=== PATIENT | female | born 1955 | race Hispanic/Latino ===

== ENCOUNTER → 2017-05-24 | Outpatient (CLI) | payer OTHER ==
[~2017-05-24] MED LIST: ACCOLATE20 MG PO; AMLODIPINE BESIL1 GM PO; AMLODIPINE BESYL5 MG PO; ATORVASTATIN CA20 MG PO; CARAFATE1 GM PO; FLAGYL500 MG PO; HYDROCHLOROTHIA25 MG PO; HYDROXYZINE HCL25 MG PO; LEVETIRACETAM500 MG PO; LORATADINE10 MG PO; MECLIZINE HCL25 MG PO; OMEPRAZOLE40 MG PO; PAROXETINE HCL30 MG PO; PLAVIX75 MG PO; TOPAMAX100 MG PO; TOPIRAMATE25 MG PO; ULTRAM50 MG PO
== END ==
LOC: MAMMO 08:16
PROVIDERS: ATTEND Internal Medicine
DX: Z12.31 Encounter for screening mammogram for malignant neoplasm of breast (principal)
CPT/HCPCS: 77067

== ENCOUNTER → 2017-06-17 | Outpatient (CLI) | payer OTHER ==
--- NOTE | 2017-06-19 11:37 | Diagnostic Imaging Report ---
History: Forgetfulness, severe headaches Comparison studies: None Technique: Sagittal T2; axial DWI, FLAIR, MPGR, T1, Coronal FLAIR. Intravenous contrast: None Findings: Scalp: Normal in signal . No masses . Bone marrow: Normal in signal intensity. Extra-axial: No masses, no fluid collections. Brain sulci: Appropriate for age. Ventricles: Normal in size . No hydrocephalus . Parenchyma: Scattered T2/flair hyperintensities of the periventricular and deep white matter No masses, hemorrhage, acute or chronic vascular insults. Suprasellar region: No abnormalities. Craniocervical junction: No abnormalities. Patent foramen magnum. No Chiari one malformation. Vessels: Normal flow-voids in the arteries and sinuses. IMPRESSION: 1. No acute intracranial abnormalities. 2. Mild to moderate chronic microvascular ischemic changes of the white matter. Age-appropriate volume loss. Signed by: DR Chuckie Kenny M.D. on 06/19/2017 11:33 AM
== END ==
LOC: MRI 09:31
PROVIDERS: ATTEND Specialist
DX: R51 Headache (principal); R41.3 Other amnesia
CPT/HCPCS: 70551

== ENCOUNTER 2017-07-31 10:02 | Inpatient (IN) | payer OTHER ==
[~2017-07-31] VITALS: Ht 149.9 cm; Wt 79.4 kg
--- OUTSIDE RECORDS SUMMARY | 2017-07-31 10:05 | XMS REPORT ---
Author Author [facility] Address Unknown Phone Unavailable Care Team Providers Care Clinical Informatics Spec Name Role Phone DC LOW Unavailable Unavailable QUINTANILLA ARIELA Unavailable Unavailable Problems This patient has no known problems. Allergies, Adverse Reactions, Alerts This patient has no known allergies or adverse reactions. Medications This patient has no known medications. Results Test Description Test Time Test Comments Text Results Atomic Results Result Comments MRI BRAIN WO [place] [address] Patient Name: MARIUSZ CABRERA MR #: [id number] : 1955 Age/Sex: 62/F Req #: [id number] Adm Physician: Ordered by: DC LOW MD Report #: [id number] Location: MRI Room/Bed: Procedure: [id number] MRI/MRI BRAIN WO Exam Date: Exam Time: REPORT STATUS: Signed History: Forgetfulness, severe headaches Comparison studies: None Technique: Sagittal T2; axial DWI, FLAIR, MPGR, T1, Coronal FLAIR. Intravenous contrast: None Findings: Scalp: Normal in signal . No masses . Bone marrow: Normal in signal intensity. Extra-axial: No masses, no fluid collections. Brain sulci: Appropriate for age. Ventricles: Normal in size . No hydrocephalus . Parenchyma: Scattered T2/flair hyperintensities of the periventricular and deep white matter No masses, hemorrhage, acute or chronic vascular insults. Suprasellar region: No abnormalities. Craniocervical junction: No abnormalities. Patent foramen magnum. No Chiari one malformation. Vessels: Normal flow-voids in the arteries and sinuses. IMPRESSION: 1. No acute intracranial abnormalities. 2. Mild to moderate chronic microvascular ischemic changes of the white matter. Age-appropriate volume loss. Signed by: DR Chuckie Kenny M.D. on 06/19/2017 11:33 AM Dictated By: CHUCKIE ZEPEDA MD 113 Transcribed By: BRYCE on 06/19/17 113 COPY TO: DC LOW MD MAMMOGRAPHY DIGITAL SCR BILAT [place] [address] Patient Name: MARIUSZ CABRERA MR #: [id number] : 1955 Age/Sex: 62/F Req #: [id number] [facility] Physician: Ordered by: ARIELA QUINTANILLA MD Report #: [id number] Location: MAMMO Room/Bed: Procedure: [id number] MG/MAMMOGRAPHY DIGITAL SCR BILAT Exam Date: 05/24/17 Exam Time: 0833 REPORT STATUS: Signed # [id number] - [id number] #BILATERAL DIGITAL SCREENING MAMMOGRAM WITH CAD: 05/24 CLINICAL: Routine screening. Comparison is made to exams dated: 12/21/2014 mammogram and 12/29/2013 mammogram - [facility]. Current study contains 6 films. The tissue of both breasts is heterogeneously dense. This may lower the sensitivity of mammography. Current study was also evaluated with a Computer Aided Detection (CAD) system. There are benign calcifications in both breasts. No significant masses, calcifications, or other findings are seen in either breast. There has been no significant interval change. IMPRESSION: BENIGN There is no mammographic evidence of malignancy. A 1 year screening mammogram is recommended. The patient will be notified by letter of the results. Portia peters/josh:06/12/2017 10:41:15 [facility] Consultant: Mitzi DILL(R)(Eulalio), [facility] letter sent: Compared to Prior B9 Mammogram BI-RADS: 2 Benign Dictated By: PORTIA TRINH DO 1041 COPY TO: ARIELA QUINTANILLA MD
[2017-07-31] MEDS ORDERED: PROAIR HFA INH8.5 GM (10:35)
[2017-07-31] MEDS ORDERED: METOPROLOL SUCC25 MG (10:35)
[2017-07-31] MEDS ORDERED: ATORVASTATIN CA80 MG (10:35)
[2017-07-31] MEDS ORDERED: AMLODIPINE BESY10 MG (10:35)
[2017-07-31] MEDS ORDERED: FUROSEMIDE20 MG (10:35)
[2017-07-31] MEDS ORDERED: TOPIRAMATE200 MG (10:35)
[2017-07-31] MEDS ORDERED: METFORMIN HCL500 MG (10:35)
[2017-07-31] MEDS ORDERED: KETOROLAC TROMETHAMINE 30 MG/ML VIAL IV STA (10:42)
[2017-07-31] MEDS ORDERED: PROMETHAZINE 25MG/ NS 50ML (IV) IV ONE (10:45)
[2017-07-31 11:15] LABS: BASOPHILS % 0.5 % (0.0-1.0); EOSINOPHILS # (AUTO) 0.1 (0.0-0.4); EOSINOPHILS % 1.6 % (0.0-6.0); HEMATOCRIT 34.6 % (34.2-44.1); HEMOGLOBIN 11.3 g/dL (12.0-16.0); LYMPHOCYTES # (AUTO) 1.6 (1.0-3.2); LYMPHOCYTES % 21.2 % (18.0-39.1); MEAN CORPUSCULAR HEMOGLOBIN 29.5 pg (28-32); MEAN CORPUSCULAR HGB CONC 32.7 g/dL (31-35); MEAN CORPUSCULAR VOLUME 90.3 fL (81-99); MONOCYTES # (AUTO) 0.4 (0.2-0.8); MONOCYTES % 5.7 % (4.4-11.3); NEUTROPHILS # (AUTO) 5.1 (2.1-6.9); NEUTROPHILS % 70.3 % (38.7-80.0); PLATELET COUNT 218 x10e3/uL (140-360); RED BLOOD COUNT 3.83 x10e6/uL (3.6-5.1); RED CELL DISTRIBUTION WIDTH 14.6 % (11.7-14.4)
--- NOTE | 2017-07-31 11:15 | Diagnostic Imaging Report ---
PROCEDURE: CHEST SINGLE (PORTABLE) COMPARISON: Chest radiograph 08/17/2016. INDICATIONS: SYNCOPAL EPISODE, MIGRAINE FINDINGS: The lungs remain well-inflated without focal consolidation, pleural effusion, or pneumothorax. Stable enlargement of the cardiac silhouette without pulmonary edema. No acute osseous abnormality. CONCLUSION: Mild cardiomegaly without vascular decompensation. Dictated by: Homer Cortez M.D. on 07/31/2017 at 11:17 Electronically approved by: Homer Cortez M.D. on 07/31/2017 at 11:17
[2017-07-31 11:26] LABS: PROTHROMBIN TIME 12.4 seconds (11.9-14.5)
[2017-07-31] MEDS ORDERED: SODIUM CHLORIDE 0.9% 1000 ML BAG IV ONE (11:30)
[2017-07-31 11:33] LABS: BILIRUBIN,URINE NEGATIVE (NEGATIVE); CLARITY,URINE CLEAR (CLEAR); COLOR,URINE YELLOW (YELLOW); KETONES,URINE NEGATIVE (NEGATIVE); LEUKOCYTE ESTERASE ,URINE NEGATIVE (NEGATIVE); NITRITE,URINE NEGATIVE (NEGATIVE); PROTEIN,URINE DIPSTICK 1+ (NEGATIVE); URINE UROBILINOGEN 0.2 mg/dL (0.2 - 1)
[2017-07-31 11:38] LABS: ALBUMIN 3.9 g/dL (3.5-5.0); ALBUMIN/GLOBULIN RATIO 1.2 (0.8-2.0); ANION GAP 11.7 mmol/L (8-16); CALCIUM 9.7 mg/dL (8.4-10.2); CREATININE, SERUM 1.46 mg/dL (0.57-1.11); POTASSIUM 3.7 mmol/L (3.5-5.1)
--- NOTE | 2017-07-31 11:43 | Diagnostic Imaging Report ---
Exam: Head CT without contrast History: Syncope, migraine Comparison studies: Brain MRI 06/17/2017 Technique: Axial images were obtained from the skull base to the vertex. Coronal and sagittal images reconstructed from the axial data. Intravenous contrast: None Findings: Scalp: No abnormalities. Bones: No fractures, blastic or lytic lesions. Brain sulci: Mildly prominent. Ventricles: No hydrocephalus. Extra-axial spaces: No masses, no fluid collection. Parenchyma: No mass, acute hemorrhage or acute cortical vascular insults. Scattered hypodensities in the supratentorial white matter are nonspecific but most compatible with chronic small vessel ischemic changes. Sellar/suprasellar region: No abnormalities. Craniocervical junction: Patent foramen magnum. No Chiari one malformation. IMPRESSION: 1. No acute abnormalities. 2. Mild to moderate chronic small vessel ischemic changes. 3. No changes from the previous brain MRI of 06/17/2017 when allowing for differences in modality. Signed by: Dr. Homer Law M.D. on 07/31/2017 11:39 AM
[2017-07-31 11:44] LABS: EPITHELIAL CELLS,URINE RARE /LPF
[2017-07-31 11:45] LABS: TRANSITIONAL EPI CELLS,URINE RARE; WBC,URINE (MAN) 0-5 /HPF (0-5)
[2017-07-31] MEDS ORDERED: ONDANSETRON HCL INJ 2 MG/ML VIAL IV STA (11:52)
[2017-07-31] MEDS ORDERED: KETOROLAC TROMETHAMINE 30 MG/ML VIAL IV ONE (12:00)
[2017-07-31] MEDS ORDERED: KETOROLAC TROMETHAMINE 30 MG/ML VIAL IV SCH (12:15)
[2017-07-31] MEDS ORDERED: SODIUM CHLORIDE FLUSH 10 ML SYR INJ PRN (12:30)
[2017-07-31] MEDS ORDERED: ONDANSETRON HCL INJ 2 MG/ML VIAL IV PRN (12:30)
[2017-07-31] MEDS ORDERED: ONDANSETRON HCL 4 MG ORAL DISINTEGRATING TAB SL PRN (12:30)
[2017-07-31 12:45] LABS: CREATINE KINASE 67 IU/L (29-168)
[2017-07-31 15:50] VITALS: BP 137/66
[2017-07-31] MEDS ORDERED: ALBUTEROL SULFATE HFA 8GM INHALATION AEROSOL INH PRN (17:45)
--- NOTE | 2017-07-31 18:19 | History and Physical ---
This is a 62-year-old female patient admitted though the emergency room with the diagnosis of severe headache. The patient had onset of syncopal event. HISTORY OF PRESENT ILLNESS: Ms. Verona Braxton is a known patient with a previous migraine. She brought some medications from [place] for cough, and the patient was having severe headache, tightness and pressure in the frontal area, and photophobia and nausea and vomiting. The patient passed out from that. The patient also complaining of epigastric pain while eating. REVIEW OF SYSTEMS: Severe headache and epigastric and chest pain and chronic cough. PAST MEDICAL HISTORY: Hypertension, diabetes mellitus, , CVA, seizure disorder and . PAST SURGICAL HISTORY: . ALLERGIES: MORPHINE. SOCIAL HISTORY: Denies smoking. Denies using alcohol. FAMILY HISTORY: Diabetes mellitus and hypertension. PHYSICAL EXAMINATION GENERAL: She is a 62-year-old female patient lying in the bed not in any acute distress. VITAL SIGNS: Temperature 98, pulse 90, blood pressure 110/80, respirations 15. HEENT: Normocephalic atraumatic. NECK: No JVD, no lymphadenopathy. LUNGS: Bilateral equal air entry; no rales, no rhonchi. HEART: S1, S2, regular, no murmur, no gallop. ABDOMEN: Soft, bowel sounds present. No organomegaly. NEUROLOGIC: Nonfocal. No neurologic deficit. ADMITTING IMPRESSION 1. Syncope. 2. Severe migraine headache. 3. Diabetes mellitus. 4. Hypertension. 5. Gastroesophageal reflux disease. 6. Gastritis. PLAN: The patient will be admitted with the above diagnosis. The patient is treated with Toradol and Zofran. Neurology and cardiology evaluation will be done. Cardiac enzymes were negative. Will monitor the patient. The patient has renal insufficiency and will monitor the patient's kidney function. The patient had CT scan of the head done which was negative for any acute stroke, showing some chronic microvascular changes in small vessels, mild to moderate, consistent with a migraine. Will give the patient Protonix for the GERD symptoms. For syncope, telemetry monitoring will be done. Job#: [id number]
[2017-07-31 18:54] VITALS: BP 137/66
[2017-07-31 19:00] VITALS: BP 146/76
[2017-07-31] MEDS: KETOROLAC TROMETHAMINE 30 MG/ML VIAL IV PRN (19:01)
[2017-07-31 19:26] LABS: CREATINE KINASE 60 IU/L (29-168)
[2017-07-31] MEDS: LEVETIRACETAM 500 MG TAB PO SCH (20:36)
[2017-07-31] MEDS: TOPIRAMATE 25 MG TAB PO SCH (20:36)
[2017-07-31 21:00] VITALS: BP 146/76
[2017-07-31 23:00] VITALS: BP 140/85
[2017-08-01] VITALS (8 sets, daily range): BP systolic 138–164; BP diastolic 71–116
[2017-08-01] MEDS: KETOROLAC TROMETHAMINE 30 MG/ML VIAL IV PRN (03:28)
[2017-08-01 06:02] LABS: BASOPHILS % 0.5 % (0.0-1.0); EOSINOPHILS # (AUTO) 0.2 (0.0-0.4); HEMATOCRIT 31.4 % (34.2-44.1); HEMOGLOBIN 10.1 g/dL (12.0-16.0); LYMPHOCYTES # (AUTO) 2.5 (1.0-3.2); LYMPHOCYTES % 30.9 % (18.0-39.1); MEAN CORPUSCULAR HEMOGLOBIN 29.3 pg (28-32); MEAN CORPUSCULAR HGB CONC 32.2 g/dL (31-35); MONOCYTES # (AUTO) 0.6 (0.2-0.8); MONOCYTES % 7.4 % (4.4-11.3); NEUTROPHILS # (AUTO) 4.6 (2.1-6.9); NEUTROPHILS % 57.6 % (38.7-80.0); PLATELET COUNT 202 x10e3/uL (140-360); RED BLOOD COUNT 3.45 x10e6/uL (3.6-5.1); RED CELL DISTRIBUTION WIDTH 14.9 % (11.7-14.4)
[2017-08-01 06:39] LABS: CREATINE KINASE 46 IU/L (29-168)
[2017-08-01 07:20] LABS: ALBUMIN 3.7 g/dL (3.5-5.0); ALBUMIN/GLOBULIN RATIO 1.2 (0.8-2.0); ANION GAP 11.3 mmol/L (8-16); CALCIUM 10.1 mg/dL (8.4-10.2); CREATININE, SERUM 1.73 mg/dL (0.57-1.11); POTASSIUM 4.3 mmol/L (3.5-5.1)
[2017-08-01] MEDS: METFORMIN HCL 500 MG TAB PO SCH ×2 (08:38→16:23)
[2017-08-01] MEDS: LEVETIRACETAM 500 MG TAB PO SCH ×2 (08:55→21:08)
[2017-08-01] MEDS: METOPROLOL SUCCINATE 25 MG TAB XL PO SCH (08:55)
[2017-08-01] MEDS: HYDROXYZINE HCL 25 MG TAB PO SCH (08:55)
[2017-08-01] MEDS: LORATADINE 10 MG TAB PO SCH (08:55)
[2017-08-01] MEDS: HYDROCHLOROTHIAZIDE 25 MG TAB PO SCH (08:55)
[2017-08-01] MEDS: FUROSEMIDE 40 MG TAB PO SCH (08:55)
[2017-08-01] MEDS: AMLODIPINE BESYLATE 10 MG TAB PO SCH (08:55)
[2017-08-01] MEDS: TOPIRAMATE 25 MG TAB PO SCH ×2 (08:55→21:08)
[2017-08-01] MEDS: CLOPIDOGREL BISULFATE 75 MG TAB PO SCH (08:55)
[2017-08-01] MEDS: ATORVASTATIN 40 MG TAB PO SCH (08:55)
[2017-08-01] MEDS: PANTOPRAZOLE SOD 40 MG TABEC PO SCH (08:55)
[2017-08-01] MEDS ORDERED: FUROSEMIDE 20 MG TAB PO SCH (09:00)
[2017-08-01] MEDS ORDERED: ATORVASTATIN 20 MG TAB PO SCH (09:00)
[2017-08-01 10:17] LABS: AMYLASE 120 U/L (25-125); LIPASE 69 U/L (8-78)
[2017-08-01] MEDS: SUCRALFATE 1 GM TAB PO SCH ×3 (11:30→21:08)
[2017-08-01] MEDS: PAROXETINE HCL 20 MG TAB PO SCH (15:50)
--- NOTE | 2017-08-01 16:45 | Diagnostic Imaging Report ---
PROCEDURE:ABDOMINAL ULTRASOUND COMPARISON:[facility], US, US ABDOMEN COMPLETE, 04/14/2014, 16:40. INDICATIONS:ABDOMINAL PAIN TECHNIQUE: Connelly-scale and color sonographic images were obtained of the abdomen in transverse and sagittal planes. FINDINGS: Liver: 14.0 cm in length in right midclavicular line. Increased echogenicity. No masses. Main portal vein: 0.8 cm, hepatopetal flow Gallbladder: Small amount of sludge is noted in the gallbladder lumen. No stones. No wall thickening or pericholecystic fluid. Common Bile Duct: 0.3 cm. Sonographic Prabhakar's sign: Negative Right kidney: 9.7 cm. Increased renal cortical echogenicity. No hydronephrosis, stones, or solid lesions. 2.4 x 2.0 x 2.1 cm cystic, anechoic lesion in the inferior pole. Left kidney: 9.7 cm. Increased renal cortical echogenicity. No hydronephrosis, stones, or solid lesions. Spleen: 8.3 cm. No focal lesions. Pancreas: The visualized portions are unremarkable. Inferior vena cava: Patent Aorta: Within normal limits Ascites: None CONCLUSION: 1. Gallbladder sludge. No cholelithiasis or sonographic evidence of cholecystitis. 2. Increased echogenicity of the hepatic parenchyma, consistent with steatosis. 3. 2.4 cm right simple renal cysts. 4. Increased bilateral renal cortical echogenicity, suggesting medical renal disease. Romulo Walton M.D. Dictated by: Romulo Walton M.D. on 08/01/2017 at 16:47 Electronically approved by: Romulo Walton M.D. on 08/01/2017 at 16:47
[2017-08-02 00:01] VITALS: BP 132/76
[2017-08-02 03:38] VITALS: BP 150/85
[2017-08-02 07:00] VITALS: BP 137/85
[2017-08-02] MEDS: SUCRALFATE 1 GM TAB PO SCH ×4 (07:30→19:41)
[2017-08-02] MEDS: METFORMIN HCL 500 MG TAB PO SCH ×2 (08:00→17:00)
[2017-08-02] MEDS: HYDROXYZINE HCL 25 MG TAB PO SCH (08:21)
[2017-08-02] MEDS: LORATADINE 10 MG TAB PO SCH (08:26)
[2017-08-02] MEDS: CLOPIDOGREL BISULFATE 75 MG TAB PO SCH (08:27)
[2017-08-02] MEDS: ATORVASTATIN 40 MG TAB PO SCH (08:27)
[2017-08-02] MEDS: PANTOPRAZOLE SOD 40 MG TABEC PO SCH (08:27)
[2017-08-02] MEDS: METOPROLOL SUCCINATE 25 MG TAB XL PO SCH (08:28)
[2017-08-02] MEDS: TOPIRAMATE 25 MG TAB PO SCH ×2 (08:28→19:41)
[2017-08-02] MEDS: PAROXETINE HCL 20 MG TAB PO SCH (08:29)
[2017-08-02] MEDS: FUROSEMIDE 40 MG TAB PO SCH (08:30)
[2017-08-02] MEDS: HYDROCHLOROTHIAZIDE 25 MG TAB PO SCH (08:30)
[2017-08-02] MEDS: LEVETIRACETAM 500 MG TAB PO SCH ×2 (08:34→19:41)
[2017-08-02] MEDS: AMLODIPINE BESYLATE 10 MG TAB PO SCH (08:35)
[2017-08-02] MEDS ORDERED: NON-FORMULARY MEDICATION (Paroxetine Hcl 30 MG) PO SCH (09:00)
--- NOTE | 2017-08-02 09:32 | Consultation ---
DATE OF CONSULTATION: August 01, 2017 CARDIOLOGY CONSULTATION REASON FOR CONSULTATION: Syncope. HPI: This is a pleasant 62-year-old female that presented with severe headache. According to the patient, she had some medication from [place] for cough. Since she had been taking the cough medication, she had been having severe headache, chest tightness, nausea, vomiting, and some blurred vision. She also complained of epigastric pain while eating that she decided to come into the emergency room for evaluation. She has a history of migraine headache and CVA in the past. She described the chest pain as a tight pressure on a scale of 3/10 with no radiation accompanied with syncope and passing out. She denies any diaphoresis or shortness of breath. Troponin was negative. EKG showed normal sinus rhythm with no S/T abnormalities. She had an ultrasound of the abdomen that was showing gallbladder sludge. PAST MEDICAL HISTORY: Hypertension, diabetes, migraine headaches, CVA, seizures. PAST SURGICAL HISTORY: . ALLERGIES: MORPHINE. SOCIAL HISTORY: She lives at home with family. She denies any smoking or use of alcohol. REVIEW OF SYSTEMS: Negative except those mentioned above. Positive for severe headache, epigastric pain and syncope. PHYSICAL EXAMINATION VITAL SIGNS: Temperature 97, heart rate 55, blood pressure 135/85, respirations 19, oxygen saturation 99% on room air. GENERAL: She is awake, alert and oriented times 3. HEENT: Mucous membranes moist. NECK: Supple. LUNGS: Bilateral clear to auscultation. CARDIOVASCULAR: S1 and S2 present. ABDOMEN: Soft. NEUROLOGICAL: Intact. EXTREMITIES: With no edema. LABS: Sodium 146, potassium 4.3, chloride 116, CO2 23, BUN 25, creatinine 1.73. White blood cells 8, hemoglobin 10.1, hematocrit 31.4, and platelets 202,000. PT 12.4, PTT 26 and INR 1. IMPRESSION 1. Syncope. 2. Severe migraine headache. 3. Hypertension. 4. Diabetes. 5. History of cerebrovascular accident. 6. Epigastric pain. 7. Renal insufficiency. ASSESSMENT AND PLAN 1. Will go ahead and get an echocardiogram to assess the LV and the valve function. 2. Will check bilateral carotid Doppler to rule out any occlusion. 3. Will check orthostatic vital signs. 4. She is scheduled for EGD today. 5. Heart rate has been 50s, simone. Will go ahead and decrease her beta amol. Further cardiac workup pending clinical course. Thank you for this consultation. DICTATED BY ORALIA THOMPSON NP Job#: [id number] RI
[2017-08-02 12:00] VITALS: BP 150/78
[2017-08-02] MEDS ORDERED: LIDOCAINE HCL 2% LOCAL INJ 5 ML SDV VIAL INJ ONE (13:48)
[2017-08-02] MEDS ORDERED: PROPOFOL IV EMULSION 10 MG/ML 50 ML VIAL ONE (13:48)
--- NOTE | 2017-08-02 14:40 | Consultation ---
DATE OF CONSULTATION: July 31, 2017 TIME: 4 o'clock in the evening NEUROLOGIC CONSULTATION July 31, 2017 This 62-year-old female was admitted to the hospital with severe headache, syncopal spell, chronic cough and severe abdominal pain. The patient is well known to me from outpatient evaluation for headaches. She has been evaluated clinically including MRI of the brain which has been negative. At the present time, the main problems she has are abdominal pain and the cough. PAST MEDICAL HISTORY: She has history of hypertension, previous CVA, seizures and migraine headaches. SURGICAL HISTORY: . ALLERGIES: MORPHINE. PAST SOCIAL HISTORY: Lives with the family. No smoking, no drinking. MEDICATIONS: List of medications has been reviewed electronically. REVIEW OF SYSTEMS: All 12 systems negative except as described above. PHYSICAL EXAMINATION VITAL SIGNS: Blood pressure 130/60, pulse 54, afebrile. LUNGS: Clear to auscultation. HEART: Regular sinus rhythm. No murmur. ABDOMEN: Soft, nontender. No organomegaly. MUSCULOSKELETAL: Lower extremities no edema, no cyanosis, no clubbing. NEURO: Family members are present. She is alert, oriented times 3. Speech clear. No dysarthria, no dysphagia. Cranial nerves: Pupils are both equal and reactive. Extraocular movements were full. Visual porter were normal. No facial weakness. Tongue protruded midline. Motor: Upper and lower extremities show no evidence of gross weakness in either proximal or distal muscles. Plantar stimulation done bilateral. Deep tendon reflexes: Triceps, biceps and radials 1+. Knee absent and ankle absent bilateral. Coordination: Finger to nose normal. HEAD: Normocephalic. No tenderness. NECK: Supple. Normal range of motion without discomfort. Carotid pulsations were present bilaterally. There was no bruit. GAIT: Deferred. IMPRESSION 1. Long history of chronic headaches. 2. Chronic cough. 3. Acute abdominal pain. Laboratory work has been reviewed in detail. Everything seen to be in normal range. Will be discussing. For the severe pain and headache, we are going to do some Toradol 30 mg IV q.6 hours p.r.n. Will be discussing with attending physician for further options. Job#: [id number] VARUN
[2017-08-02] MEDS ORDERED: MIDAZOLAM HCL 2 MG/2 ML VIAL ONE (15:16)
[2017-08-02] MEDS ORDERED: PANTOPRAZOLE 40 MG 10ML VIAL IV SCH (15:30)
[2017-08-02 16:15] VITALS: BP 146/71
[2017-08-02] MEDS ORDERED: GUAIFENESIN 600MG/DEXTROMETHORPHAN 30MG TABSR PO SCH (17:00)
--- NOTE | 2017-08-02 17:11 | Operative Report ---
DATE OF PROCEDURE: August 02, 2017 REFERRING PHYSICIAN: Dr. Vladimir Quintanilla. PROCEDURE PERFORMED: Esophagogastroduodenoscopy with esophageal dilatation and biopsies. INDICATIONS FOR PROCEDURE: Upper abdominal pain. Nausea and vomiting, dysphagia to solids. MEDICATION: Patient was done under MAC. Please see anesthesiologist's note. PROCEDURE: With patient in the left lateral decubitus position, flexible fiberoptic Olympus gastroscope was introduced into the esophagus under direct visualization without any difficulty. There was some patchy erythema noted in distal esophagus. A mild stricture was noted at the GE junction that was dilated to a size 52-[place]etts. The scope was then advanced with ease into the stomach and approximately a 5 mm ulcer without active bleeding was noted in the upper body along the greater curvature and that was biopsied. Mucosa overlying the antrum revealed some diffuse erythema and moderate edema and biopsies were obtained and sent to stain for H. pylori. Pylorus appeared to be of normal contour and shape. Was intubated with ease, and the scope was advanced all the way to the 2nd portion of the duodenum. The scope was then withdrawn slowly. Mucosa overlying the proximal 2nd portion and the duodenal bulb appeared to be within normal limits. The scope was then withdrawn back into the stomach and retroflexed and the mucosa overlying the fundus and the cardia appeared to be within normal limits. The scope was then straightened out. It was subsequently withdrawn. Patient tolerated the procedure well. IMPRESSION: 1. Distal esophagitis, mild. 2. Esophageal stricture at gastroesophageal junction dilated to size 52-[place] Ricketts. 3. Gastritis biopsied. Biopsies sent to stain for H. pylori. 4. Approximately 5 mm ulcer upper body greater curvature, biopsied. PLAN: Follow up histology. Will increase Protonix to 40 mg IV b.i.d.. Job#: [id number] cc:ARIELA QUINTANILLA MD
[2017-08-02 19:55] VITALS: BP 144/72
--- NOTE | 2017-08-02 23:59 | Discharge Summary ---
She is a 62-year-old female patient presented to the emergency room with the severe headache and patient had a passed-out syncopal event. ADMITTING IMPRESSIONS AND DIAGNOSES 1. Syncope. 2. Severe migraine headache. 3. Diabetes mellitus. 4. Hypertension. 5. Gastritis. 6. Gastroesophageal reflux disease. 7. Possible esophageal stricture. 8. Depression. 9. Diabetes mellitus, type 2. 10. Hypertension. HOSPITAL COURSE SUMMARY: Patient was admitted with above diagnoses. Patient was given IV fluids, IV analgesics. Neurology and GI and cardiology consults were done. Patient was planned for the EGD and possible esophageal dilatation today. Patient did get echo and carotid Doppler by cardiology, Dr. Leung. The patient's neurologist evaluation, patient has a more underlying depression that is this problem. So, patient will be referred to outpatient psychiatrist and on carotid Doppler, patient did not have any significant blockage, and so, after EGD and possible dilatation , patient will be discharged home and advised to do the followup with the neurology and was referred to the psychiatrist. ARIELA QUINTANILLA MD Job#: [id number]
== END 2017-08-02 20:01 | disposition home or self-care (01) | DRG 103 ==
LOC: ER 10:14 → ERHOLD 12:51 → IMCU 14:34
PROVIDERS: ADMIT Internal Medicine; ATTEND Internal Medicine
PROC: 0D748ZZ Dilation of Esophagogastric Junction, Via Natural or Artificial Opening Endoscopic (ICD-10-PCS; 2017-08-02)
PROC: 0DB68ZX Excision of Stomach, Via Natural or Artificial Opening Endoscopic, Diagnostic (ICD-10-PCS; principal; 2017-08-02 14:30)
PROC: 0DB78ZX Excision of Stomach, Pylorus, Via Natural or Artificial Opening Endoscopic, Diagnostic (ICD-10-PCS; 2017-08-02 14:30)
DX: G43.909 Migraine, unspecified, not intractable, without status migrainosus (principal); E11.9 Type 2 diabetes mellitus without complications; K21.9 Gastro-esophageal reflux disease without esophagitis; F32.9 Major depressive disorder, single episode, unspecified; K22.2 Esophageal obstruction; K29.70 Gastritis, unspecified, without bleeding; K25.9 Gastric ulcer, unspecified as acute or chronic, without hemorrhage or perforation; Z86.73 Personal history of transient ischemic attack (TIA), and cerebral infarction without residual deficits; I10 Essential (primary) hypertension; Z79.4 Long term (current) use of insulin; R00.1 Bradycardia, unspecified
CPT/HCPCS: 36415; 43239; 43450; 70450; 71045; 76700; 80053; 81001; 82150; 82550; 82553; 83605; 83690; 84484; 85025; 85610; 85730; 87040; 88305; 88312; 93005; 93880; 99285; J1885; J2001; J2250; J3410; J7030

== ENCOUNTER → 2017-10-28 | Day surgery (SDC) | payer OTHER ==
[2017-10-22 13:36] LABS: BASOPHILS # (AUTO) 0.1 (0.0-0.1); BASOPHILS % 0.9 % (0.0-1.0); EOSINOPHILS # (AUTO) 0.3 (0.0-0.4); EOSINOPHILS % 3.3 % (0.0-6.0); HEMATOCRIT 33.2 % (34.2-44.1); HEMOGLOBIN 10.6 g/dL (12.0-16.0); LYMPHOCYTES # (AUTO) 2.6 (1.0-3.2); LYMPHOCYTES % 31.6 % (18.0-39.1); MEAN CORPUSCULAR HEMOGLOBIN 29.5 pg (28-32); MEAN CORPUSCULAR HGB CONC 31.9 g/dL (31-35); MEAN CORPUSCULAR VOLUME 92.5 fL (81-99); MONOCYTES # (AUTO) 0.6 (0.2-0.8); MONOCYTES % 7.5 % (4.4-11.3); NEUTROPHILS # (AUTO) 4.6 (2.1-6.9); NEUTROPHILS % 56.2 % (38.7-80.0); PLATELET COUNT 213 x10e3/uL (140-360); RED BLOOD COUNT 3.59 x10e6/uL (3.6-5.1); RED CELL DISTRIBUTION WIDTH 13.6 % (11.7-14.4)
[~2017-10-28] MED LIST changes: +AMLODIPINE BESY10 MG PO; +ATORVASTATIN CA80 MG PO; +FUROSEMIDE20 MG PO; +METFORMIN HCL500 MG PO; +METOPROLOL SUCC25 MG PO; +PANTOPRAZOLE SO40 MG PO; +PROAIR HFA INH8.5 GM; +PROPOFOL IV EMULSION 10 MG/ML 20 ML VIAL ONE; +SUCRALFATE1 GM PO; +TOPIRAMATE200 MG
[2017-10-28 14:30] VITALS: BP 139/76
== END | disposition home or self-care (01) ==
LOC: OR 10:27
PROVIDERS: ATTEND Internal Medicine Gastroenterology
DX: R10.13 Epigastric pain (principal); D64.9 Anemia, unspecified; R11.2 Nausea with vomiting, unspecified; E11.9 Type 2 diabetes mellitus without complications; I10 Essential (primary) hypertension; K21.9 Gastro-esophageal reflux disease without esophagitis; I25.10 Atherosclerotic heart disease of native coronary artery without angina pectoris; J45.909 Unspecified asthma, uncomplicated; Z01.810 Encounter for preprocedural cardiovascular examination; Z01.812 Encounter for preprocedural laboratory examination; Z80.3 Family history of malignant neoplasm of breast; Z83.79 Family history of other diseases of the digestive system
CPT/HCPCS: 36415; 45378; 82948; 85025; 93005

== ENCOUNTER → 2017-11-25 | Day surgery (SDC) | payer OTHER ==
[2017-11-19 14:53] LABS: BASOPHILS # (AUTO) 0.1 (0.0-0.1); EOSINOPHILS # (AUTO) 0.3 (0.0-0.4); EOSINOPHILS % 3.4 % (0.0-6.0); HEMATOCRIT 34.2 % (34.2-44.1); HEMOGLOBIN 10.7 g/dL (12.0-16.0); LYMPHOCYTES # (AUTO) 2.6 (1.0-3.2); LYMPHOCYTES % 31.2 % (18.0-39.1); MEAN CORPUSCULAR HEMOGLOBIN 29.1 pg (28-32); MEAN CORPUSCULAR HGB CONC 31.3 g/dL (31-35); MEAN CORPUSCULAR VOLUME 92.9 fL (81-99); MONOCYTES # (AUTO) 0.5 (0.2-0.8); MONOCYTES % 5.5 % (4.4-11.3); NEUTROPHILS # (AUTO) 4.8 (2.1-6.9); NEUTROPHILS % 58.4 % (38.7-80.0); PLATELET COUNT 229 x10e3/uL (140-360); RED BLOOD COUNT 3.68 x10e6/uL (3.6-5.1); RED CELL DISTRIBUTION WIDTH 13.7 % (11.7-14.4)
[~2017-11-25] MED LIST changes: +LIDOCAINE HCL 2% LOCAL INJ 5 ML SDV VIAL INJ ONE; +MIDAZOLAM HCL 2 MG/2 ML VIAL ONE
[2017-11-25 13:56] VITALS: BP 157/88
== END | disposition home or self-care (01) ==
LOC: OR 11:47
PROVIDERS: ATTEND Internal Medicine Gastroenterology
DX: K29.70 Gastritis, unspecified, without bleeding (principal); D64.9 Anemia, unspecified; R10.13 Epigastric pain; R14.0 Abdominal distension (gaseous); E11.9 Type 2 diabetes mellitus without complications; Z71.3 Dietary counseling and surveillance; I10 Essential (primary) hypertension; E66.01 Morbid (severe) obesity due to excess calories; Z68.41 Body mass index [BMI] 40.0-44.9, adult; R11.2 Nausea with vomiting, unspecified; Z88.5 Allergy status to narcotic agent; G40.909 Epilepsy, unspecified, not intractable, without status epilepticus; J45.909 Unspecified asthma, uncomplicated; K21.0 Gastro-esophageal reflux disease with esophagitis
CPT/HCPCS: 36415; 43239; 85025; 93005; J2001; J2250

== ENCOUNTER → 2019-07-22 | Outpatient (CLI) | payer OTHER ==
[~2019-07-22] MED LIST changes: +FERROUS SULFAT325 MG PO; +FOLIC ACID PO; +GABAPENTIN300 MG PO; +HYDRALAZINE HCL25 MG PO; +LEVOCETIRIZINE D5 MG PO; -LIDOCAINE HCL 2% LOCAL INJ 5 ML SDV VIAL INJ ONE; -MIDAZOLAM HCL 2 MG/2 ML VIAL ONE; +MONTELUKAST SOD10 MG PO; +OXYBUTYNIN CHLOR5 M1 PO; -PROPOFOL IV EMULSION 10 MG/ML 20 ML VIAL ONE
== END ==
LOC: MAMMO 12:11
PROVIDERS: ATTEND Internal Medicine
DX: Z12.31 Encounter for screening mammogram for malignant neoplasm of breast (principal)
CPT/HCPCS: 77067

== ENCOUNTER 2021-11-20 15:03 | Observation (INO) | payer OTHER ==
[~2021-11-20] VITALS: Ht 152.4 cm; Wt 84.8 kg
[2021-11-20] MEDS ORDERED: ASPIRIN 325 MG TAB PO ONE (15:15)
[2021-11-20] MEDS ORDERED: ONDANSETRON HCL INJ 2MG/ML 2ML 2 MG/ML VIAL IV PRN ×2 (15:15→17:45)
[2021-11-20 15:44] LABS: BASOPHILS # (AUTO) 0.1 (0.0-0.1); EOSINOPHILS # (AUTO) 0.4 (0.0-0.4); EOSINOPHILS % 5.6 % (0.0-6.0); HEMATOCRIT 30.8 % (34.2-44.1); HEMOGLOBIN 9.2 g/dL (12.0-16.0); LYMPHOCYTES # (AUTO) 2.3 (1.0-3.2); LYMPHOCYTES % 31.3 % (18.0-39.1); MEAN CORPUSCULAR HEMOGLOBIN 30.3 pg (28-32); MEAN CORPUSCULAR HGB CONC 29.9 g/dL (31-35); MEAN CORPUSCULAR VOLUME 101.3 fL (81-99); MONOCYTES # (AUTO) 0.6 (0.2-0.8); MONOCYTES % 7.7 % (4.4-11.3); NEUTROPHILS # (AUTO) 3.9 (2.1-6.9); NEUTROPHILS % 53.4 % (38.7-80.0); PLATELET COUNT 175 x10e3/uL (140-360); RED BLOOD COUNT 3.04 x10e6/uL (3.6-5.1); RED CELL DISTRIBUTION WIDTH 13.2 % (11.7-14.4)
[2021-11-20 16:02] LABS: ALANINE AMINOTRANSFERASE 23 IU/L (0-55); ALBUMIN 4.1 g/dL (3.5-5.0); ALBUMIN/GLOBULIN RATIO 1.2 (0.8-2.0); ALKALINE PHOSPHATASE 97 IU/L (40-150); BLOOD UREA NITROGEN 40 mg/dL (7-26); BUN/CREATININE RATIO 16 (6-25); CALCIUM 9.2 mg/dL (8.4-10.2); CARBON DIOXIDE 20 mmol/L (22-29); CHLORIDE 114 mmol/L (98-107); CREATININE, SERUM 2.49 mg/dL (0.57-1.11); GLUCOSE 94 mg/dL (74-118); SODIUM 145 mmol/L (136-145)
[2021-11-20 16:04] LABS: INR 0.89; PROTHROMBIN TIME 12.9 seconds (11.9-14.5)
[2021-11-20 16:44] LABS: CLARITY,URINE SL CLOUDY (CLEAR); COLOR,URINE YELLOW (YELLOW); KETONES,URINE NEGATIVE (NEGATIVE); LEUKOCYTE ESTERASE ,URINE TRACE (NEGATIVE); NITRITE,URINE NEGATIVE (NEGATIVE); PROTEIN,URINE DIPSTICK NEGATIVE (NEGATIVE); URINE UROBILINOGEN 0.2 mg/dL (0.2 - 1)
[2021-11-20 16:50] LABS: BACTERIA,URINE MODERATE /HPF; EPITHELIAL CELLS,URINE MODERATE /LPF; RENAL EPITHELIAL CELLS,URINE FEW
[2021-11-20] MEDS ORDERED: SODIUM CHLORIDE FLUSH 10 ML SYR INJ PRN (17:45)
[2021-11-20] MEDS ORDERED: ASPIRIN 81 MG CHEW TAB PO ONE (17:45)
[2021-11-20] MEDS ORDERED: HEPARIN SOD (PORCINE) 5,000 UNIT/ML VIAL IV ONE (18:00)
[2021-11-20] MEDS ORDERED: HEPARIN 25,000 UNIT 1,000 UNIT in DEXTROSE 5% 250ML 250 ML IV SCH (18:00)
[2021-11-20] MEDS ORDERED: HEPARIN 25,000 UNIT DRIP IV ONE (19:30)
[2021-11-20 20:00] VITALS: BP 155/80
[2021-11-20 22:58] VITALS: BP 155/80
[2021-11-20] MEDS ORDERED: FUROSEMIDE INJ 10 MG/ML 4 ML VIAL IV ONE (23:15)
[2021-11-20] MEDS ORDERED: ALBUTEROL/IPRATROPIUM 3 ML NEB NEB PRN (23:15)
[2021-11-20] MEDS ORDERED: ACETAMINOPHEN 325 MG TAB PO PRN (23:15)
[2021-11-20] MEDS ORDERED: DIPHENHYDRAMINE HCL 25 MG CAP PO PRN (23:15)
[2021-11-20] MEDS ORDERED: SIMETHICONE 80 MG CHEW PO PRN (23:15)
[2021-11-20] MEDS ORDERED: MELATONIN 5 MG TABLET PO PRN (23:15)
[2021-11-20] MEDS ORDERED: BENZONATATE 100 MG CAP PO PRN (23:15)
[2021-11-20] MEDS ORDERED: DOCUSATE SODIUM 100 MG CAP PO PRN (23:15)
[2021-11-20] MEDS ORDERED: HYDRALAZINE HCL 20 MG/ML VIAL IV PRN (23:15)
[2021-11-20] MEDS ORDERED: POTASSIUM CHLORIDE 20 MEQ TAB CR PO PRN (23:15)
[2021-11-20] MEDS ORDERED: LIDOCAINE 4% PATCH TP PRN (23:15)
[2021-11-20] MEDS ORDERED: TOPIRAMATE 25 MG TAB PO SCH (23:15)
[2021-11-20] MEDS ORDERED: DEXTROSE 50% SYRINGE 50 ML IV PRN (23:15)
[2021-11-20] MEDS ORDERED: LABETALOL HCL100 MG PO (23:19)
[2021-11-20] MEDS ORDERED: TOPIRAMATE100 MG PO (23:19)
[2021-11-21] MEDS: HYDRALAZINE HCL 25 MG TAB PO SCH ×4 (00:48→20:02)
[2021-11-21] MEDS: LEVETIRACETAM 500 MG TAB PO SCH ×3 (00:49→20:02)
[2021-11-21] MEDS: TOPIRAMATE 100 MG TAB PO SCH ×3 (00:49→20:01)
[2021-11-21] MEDS: AMLODIPINE BESYLATE 10 MG TAB PO SCH ×2 (00:49→09:04)
[2021-11-21 03:48] LABS: CREATINE KINASE 83 IU/L (29-168)
[2021-11-21 04:00] VITALS: BP 120/63
[2021-11-21 05:02] LABS: BASOPHILS # (AUTO) 0.1 (0.0-0.1); EOSINOPHILS # (AUTO) 0.5 (0.0-0.4); HEMATOCRIT 30.4 % (34.2-44.1); HEMOGLOBIN 9.5 g/dL (12.0-16.0); LYMPHOCYTES # (AUTO) 2.4 (1.0-3.2); LYMPHOCYTES % 30.5 % (18.0-39.1); MEAN CORPUSCULAR HEMOGLOBIN 30.3 pg (28-32); MEAN CORPUSCULAR HGB CONC 31.3 g/dL (31-35); MONOCYTES # (AUTO) 0.6 (0.2-0.8); MONOCYTES % 7.8 % (4.4-11.3); NEUTROPHILS # (AUTO) 4.2 (2.1-6.9); NEUTROPHILS % 53.8 % (38.7-80.0); PLATELET COUNT 183 x10e3/uL (140-360); RED BLOOD COUNT 3.14 x10e6/uL (3.6-5.1); RED CELL DISTRIBUTION WIDTH 13.4 % (11.7-14.4)
[2021-11-21 05:12] LABS: MEAN CORPUSCULAR VOLUME 96.8 fL (81-99)
[2021-11-21 05:49] LABS: ANION GAP 13.9 mmol/L (8-16); CALCIUM 8.8 mg/dL (8.4-10.2); CHOL/HDL RATIO 3.6 (3.0-3.6); CREATININE, SERUM 2.47 mg/dL (0.57-1.11); MAGNESIUM 2.5 MG/DL (1.3-2.1); POTASSIUM 3.9 mmol/L (3.5-5.1)
[2021-11-21 06:13] LABS: THYROID STIMULATING HORMONE 1.914 uIU/mL (0.350-4.940)
[2021-11-21 08:40] VITALS: BP 141/79
[2021-11-21] MEDS ORDERED: FUROSEMIDE 20 MG TAB PO SCH (09:00)
[2021-11-21 09:02] LABS: CREATINE KINASE 83 IU/L (29-168)
[2021-11-21] MEDS: PANTOPRAZOLE SOD 40 MG TABEC PO SCH (09:02)
[2021-11-21] MEDS: OXYBUTYNIN CHLORIDE XL 5 MG TAB PO SCH (09:03)
[2021-11-21] MEDS: ATORVASTATIN 40 MG TAB PO SCH (09:04)
[2021-11-21] MEDS: PAROXETINE HCL 20 MG TAB PO SCH (09:04)
[2021-11-21] MEDS: CLOPIDOGREL BISULFATE 75 MG TAB PO SCH (09:04)
[2021-11-21] MEDS: MONTELUKAST SODIUM 10 MG TAB PO SCH (09:04)
[2021-11-21 13:50] VITALS: BP 107/66
[2021-11-21 15:57] VITALS: BP 126/76
[2021-11-21] MEDS ORDERED: FUROSEMIDE INJ 10 MG/ML 2 ML VIAL IV ONE (16:00)
[2021-11-21 18:48] LABS: CREATINE KINASE MB 1.6 ng/mL (0-5.0)
[2021-11-21 19:39] VITALS: BP 105/63
[2021-11-21 19:53] VITALS: BP 105/63
[2021-11-22] VITALS: BP 105/59
[2021-11-22 05:00] VITALS: BP 101/59
[2021-11-22] MEDS: PANTOPRAZOLE SOD 40 MG TABEC PO SCH (08:21)
[2021-11-22 08:52] VITALS: BP 136/65
[2021-11-22 08:58] VITALS: BP 136/65
[2021-11-22] MEDS ORDERED: AMLODIPINE BESYLATE 10 MG TAB PO SCH (09:00)
[2021-11-22] MEDS ORDERED: FUROSEMIDE INJ 10 MG/ML 2 ML VIAL IV SCH (09:00)
[2021-11-22] MEDS: MONTELUKAST SODIUM 10 MG TAB PO SCH (09:13)
[2021-11-22] MEDS: PAROXETINE HCL 20 MG TAB PO SCH (09:13)
[2021-11-22] MEDS: OXYBUTYNIN CHLORIDE XL 5 MG TAB PO SCH (09:14)
[2021-11-22] MEDS: CLOPIDOGREL BISULFATE 75 MG TAB PO SCH (09:14)
[2021-11-22] MEDS: HYDRALAZINE HCL 25 MG TAB PO SCH (09:14)
[2021-11-22] MEDS: TOPIRAMATE 100 MG TAB PO SCH (09:14)
[2021-11-22] MEDS: LEVETIRACETAM 500 MG TAB PO SCH (09:15)
[2021-11-22] MEDS: ATORVASTATIN 40 MG TAB PO SCH (09:15)
[2021-11-22] MEDS ORDERED: ONDANSETRON HCL 4 MG ORAL DISINTEGRATING TAB PO PRN (11:30)
[2021-11-22 11:48] VITALS: BP 129/69
[2021-11-22] MEDS ORDERED: LASIX20 MG PO (11:57)
== END 2021-11-22 14:30 | disposition home or self-care (01) ==
LOC: ER 15:13 → ERHOLD 17:44 → INTOOBSV 17:44 → MED/SURG 22:39
PROVIDERS: ADMIT Internal Medicine; ATTEND Internal Medicine
DX: R07.89 Other chest pain (principal); J81.1 Chronic pulmonary edema; I31.3 Pericardial effusion (noninflammatory); N18.5 Chronic kidney disease, stage 5; I13.2 Hypertensive heart and chronic kidney disease with heart failure and with stage 5 chronic kidney disease, or end stage renal disease; I50.9 Heart failure, unspecified; E78.5 Hyperlipidemia, unspecified; D63.1 Anemia in chronic kidney disease; Z86.73 Personal history of transient ischemic attack (TIA), and cerebral infarction without residual deficits; Z88.5 Allergy status to narcotic agent; Z20.822 Contact with and (suspected) exposure to COVID-19; Z83.3 Family history of diabetes mellitus; Z82.49 Family history of ischemic heart disease and other diseases of the circulatory system; G40.909 Epilepsy, unspecified, not intractable, without status epilepticus
CPT/HCPCS: 0223U; 36415; 71045; 78580; 80048; 80053; 80061; 81001; 82550; 82553; 83036; 83735; 83880; 84443; 84484 ×2; 85025 ×2; 85379; 85610; 85730 ×2; 86140; 87086; 93005; 93306; 93970; 99284; A9540; G0378 ×3; J1644; J1940 ×3; J2405; S0164 ×2